=== PATIENT | male | born 1995 | race Two or more races ===

== ENCOUNTER 2017-05-29 16:46 | Emergency (ER) | payer OTHER ==
[~2017-05-29] VITALS: Ht 157.5 cm; Wt 65.8 kg
--- NOTE | 2017-05-29 16:55 | Emergency Room Report ---
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 Clinical Suspician of Infection? Mental Status: Sepsis Risk: Have you (or family members/close friends) recently traveled outside the [place]? If Yes, where/when: Have you had exposure to infectious disease within the past month? TB? Other? Specify: Source patient, RN notes reviewed Exam Limitations no limitations Comment Pt is a [place] who does not speak any Bangladeshi and was working in a barn and fell about 10 feet, hit his head on a wagon and then fell onto the ground. NO LOC and ambulatory in the ED. He has not had any immunizations and complains of pain only in his head and neck. He has about a 4 to 5 cm laceration on the left occiput which is gaping open about 1/4 inch Cardiac Chest Pain Chest pain indicative of cardiac No ALLERGIES Coded Allergies: No Known Allergies (05/29/17) History Medical History Surgical Hx Previous Surgery? none Review of Systems All Other Systems Reviewed and Negative Constitutional see HPI Skin see HPI Psychiatric/Neurological see HPI Physical Exam Vital Signs Vital Signs Date Time Temp Pulse Resp B/P Pulse O2 O2 Flow FiO2 Ox Delivery Rate 05/29 1653 96 05/29 1648 98.4 62 18 168/88 96 General Appearance normal appearance, WD/WN, no apparent distress Respiratory Status No: respiratory distress. 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 No Results/Orders Current Medication Orders Sig/Breann Start time Last Medication Dose Route Stop Time Status Admin Bacitracin 0 .STK-MED ONE 05/29 191 DC TP Diphtheria/Pertussis/ 0 .STK-MED ONE 05/29 180 DC Tetanus Vacc IM Lidocaine HCl 0 .STK-MED ONE 05/29 1718 DC .ROUTE Lidocaine HCl 10 ML ONCE ONE 05/29 1715 DC SC 05/29 1716 Diphtheria/Pertussis/ 0.5 ML ONCE ONE 05/29 1700 DC 05/29 Tetanus Vacc IM 05/29 1701 1812 Orders Procedure Date/time Status DIET-NOTHING BY MOUTH 05/29 D Active PROCEDURE TRAY SET UP 05/29 1719 Active PREPARE CONSENT 05/[address] HEAD W/O CONTRAST 05/[address] CERVICAL SPINE W/O CONT. 05/[address] HEAD REQ 05/[address] SCAN REQUEST 05/29 1656 Complete XRAY/CT/US XRAY/CT/US CT head, C-spine CT interpretation by discussed w/radiologist Time results known: 1912 CT Results normal/NAD, no fracture seen Procedures Laceration/Wound Repair Laceration/Wound Repair Risks/benefits discussed with pt/guardian? Yes Tetanus status not up to date, given Tdap in the ED Wound Location head Wound Length (cm) 7 Wound's Depth, Shape sucutaneous tissue Wound Explored no FB identified Risk of retained FB explained to pt/guardian? No Irrigated w/ Saline (ccs) 50 Wound Prep Hibiclens, Saline Anesthesia 1% Lidocaine Volume Anesthetic (ccs) 8 Wound Debrided none Wound Repaired With sutures Suture Size/Type 4:0, Vicryl Layer Closure No Total Number Sutures 11 Sterile Dressing Applied Yes Splint Applied No Departure Departure Time of Disposition 1914 Disposition DC Home or Self Care(routine) Clinical Impression Primary Impression: Closed head injury Qualifiers: Encounter type: initial encounter Qualified Code: S09.90XA - Unspecified injury of head, initial encounter Secondary Impressions: Occipital scalp laceration Qualifiers: Encounter type: initial encounter Qualified Code: S01.01XA - Laceration without foreign body of scalp, initial encounter Condition STABLE Patient Instructions Closed Head Injury, DI for Closed Head Injury, DI for Laceration Repair, DI for Laceration Repair of the Scalp, Laceration Repair Additional Instructions keep stitchs dry for next 2 days after taking shower tonight to get all the blood out of hair. Apply sterile dressing daily especially if he is working Discharge Counseling Counseled pt/family regarding diagnosis, test results, home care, follow up needs Prescriptions Current Visit Scripts MUPIROCIN 2% (Bactroban Oint) 1 GM TP DAILY #1 TUBE Ref 1 ED Critical Care Critical Care No If Critical Care minutes are documented, the time involved in the performance of seperately reportable procedures was not counted toward critical care time documented. I directly delivered medical care to this critically ill and/or injured patient. Timely evaluation and treatment was necessary to address the significant organ system(s) dysfunction present in this patient. at [id number]
[2017-05-29 19:50] VITALS: BP 139/76
--- NOTE | 2017-05-30 05:53 | RADIOLOGY REPORT PS360 ---
CT HEAD WITHOUT CONTRAST CT BONE WINDOWS included ORDERING PHYSICIAN : Corinna Hernandez MD PATIENT AGE: 22 years GENDER: Male PROCEDURE: Routine axial images headwithout contrast. Brain & bone windows HISTORY: FALL FROM BARN COMPARISON: None FINDINGS: No acute intracranial findings. No hemorrhage. No mass effect or mass lesion. No subdural nor extra-axial collection. Ventricles & basal cisterns appear satisfactory. Hughes & white matter patterns satisfactory. The posterior fossa appear satisfactory and unremarkable. The skull is intact.. A laceration at the left scalp superiorly noted. Underlying bone here intact. The visualized portions of the paranasal sinuses are clear. Mastoid air cells, middle ear & IACs are unremarkable. IMPRESSION: No acute intracranial findings.
--- NOTE | 2017-05-31 13:17 | RADIOLOGY REPORT PS360 ---
CT CERVICAL SPINE W/O CONT HISTORY: FALL FROM BARNlaceration left side of head Patient Age: 22 years: Male Ordering Physician: Corinna Henrandez MD TECHNIQUE: Spiral CT scanning performed the cervical spine with sagittal and coronal reconstructions on CT workstation. COMPARISON : FINDINGS No acute fracture nor subluxation. The vertebral bodies appear intact and disc spaces are well-maintained. Satisfactory alignment. Prevertebral soft tissues appear normal. Base of skull intact. C1-C2 relationships normal. Facets appear satisfactory. Spinous processes unremarkable. . Regional soft tissues throughout the neck with no significant findings. Scattered small /moderate nodes that neck IMPRESSION: Cervical spine intact with no fracture nor subluxation.
--- OUTSIDE RECORDS SUMMARY | 2017-06-07 07:42 | External Medical Summary Rpt | CCD ---
Demographics Preferred Language Turkish Marital Status Unknown Muslim Affiliation Unknown Race Unknown Ethnic Group Unknown Author Author , SANTHOSH TREVIZO Address Unknown Phone Immunization No patient found.
--- OUTSIDE RECORDS SUMMARY | 2017-06-07 07:42 | External Medical Summary Rpt | CCD ---
Author Author SANTHOSH Address Unknown Phone Purpose Continuity of Care Document - through 2016
--- OUTSIDE RECORDS SUMMARY | 2017-06-07 07:42 | External Medical Summary Rpt | CCD ---
Author Author [facility] Organization [facility] Address Unknown Phone Unavailable Purpose Continuity of Care Document - through 2016
--- OUTSIDE RECORDS SUMMARY | 2017-06-07 07:42 | External Medical Summary Rpt | CCD ---
Demographics Preferred Language Kazakh Marital Status Unknown Christianity Affiliation Unknown Race Unknown Ethnic Group Unknown Author Author , SANTHOSH TREVIZO Address Unknown Phone Immunization No patient found.
== END 2017-05-29 19:25 | disposition home or self-care (01) ==
LOC: ER 16:46
PROC: 0HQ0XZZ Repair Scalp Skin, External Approach (ICD-10-PCS; principal; 2017-05-29)
DX: S01.01XA Laceration without foreign body of scalp, initial encounter (principal); S09.90XA Unspecified injury of head, initial encounter; Z23 Encounter for immunization; W17.89XA Other fall from one level to another, initial encounter; Y92.71 Barn as the place of occurrence of the external cause; Y99.0 Civilian activity done for income or pay